=== PATIENT | female | born 1990 | race Caucasian/White ===

== ENCOUNTER 2017-07-11 09:07 | Outpatient (CLI) ==
[2017-07-11 09:39] LABS: BILIRUBIN,URINE Negative (NEGATIVE); KETONES,URINE Negative (NEGATIVE); LEUKOCYTE ESTERASE ,URINE 1+ (NEGATIVE); NITRITE,URINE Negative (NEGATIVE); PROTEIN,URINE Negative (NEGATIVE); URINE, BLOOD Trace-lysed (NEGATIVE)
[2017-07-11 09:52] LABS: BASOPHILS % (AUTO) 0.3 % (0.0-3.0); EOSINOPHILS # (AUTO) 0.1 K/ul (0.0-0.7); EOSINOPHILS % (AUTO) 0.9 % (0.0-7.0); HEMATOCRIT 40.8 % (37.0-47.0); HEMOGLOBIN 14.1 g/dl (12.0-16.0); IMMATURE GRANULOCYTE % (AUTO) 0.4 % (0.0-5.0); LYMPHOCYTES # (AUTO) 2.4 K/uL (0.60-3.4); LYMPHOCYTES % (AUTO) 23.8 (10.0-50.0); MEAN CORPUSCULAR HEMOGLOBIN 32.1 pg (27.0-31.0); MEAN CORPUSCULAR HGB CONC 34.6 (31.8-35.4); MEAN CORPUSCULAR VOLUME 92.9 fl (81.0-99.0); MONOCYTES # (AUTO) 0.6 K/uL (0.4-2.0); NEUTROPHILS # (AUTO) 6.9 K/ul (2.0-6.9); NEUTROPHILS % (AUTO) 68.6; PLATELET COUNT 214 10^3/uL (140-440); RED BLOOD COUNT 4.39 10^6/ul (4.20-5.40); WHITE BLOOD COUNT 10.06 K/ul (4.6-10.2)
[2017-07-11 09:58] LABS: COCAIN SCREEN,URINE NEGATIVE (NEGATIVE)
[2017-07-11 09:59] LABS: SERUM PREGNANCY INTERNAL QC INTERNAL QC VALID
[2017-07-11 10:02] LABS: ADD URINE MICROSCOPIC YES; BACTERIA,URINE 1+ (NOT PRESENT)
[2017-07-11 10:16] LABS: ALBUMIN 3.6 g/dL (3.4-5.0); ALBUMIN/GLOBULIN RATIO 1.09; ANION GAP 11.7; BILIRUBIN,TOTAL 0.67 mg/dL (0.00-1.20); BUN/CREATININE RATIO 15.71; CALCIUM 9.3 mg/dL (8.2-10.2); CHOL/HDL RATIO 3.4 (4.5-5.5); CREATININE 0.7 mg/dL (0.60-1.30); POTASSIUM 4.7 mmol/L (3.5-5.10); TOTAL PROTEIN 6.9 g/dL (6.4-8.2)
== END 2017-07-11 09:08 | disposition home or self-care (01) ==
LOC: LAB 09:07
PROVIDERS: ATTEND Family Medicine
DX: Z00.00 Encounter for general adult medical examination without abnormal findings (principal)
CPT/HCPCS: 36415; 80053; 80061; 80306; 81001; 84439; 84443; 84703; 85025

== ENCOUNTER 2017-12-11 13:00 | Outpatient (CLI) | END 2017-12-11 13:01 | disposition home or self-care (01) | LOC: LAB 13:00 | PROVIDERS: ATTEND Family Medicine | DX: R19.7 Diarrhea, unspecified (principal); R11.10 Vomiting, unspecified | CPT/HCPCS: 36415; 80053; 81001; 84439; 84443; 84703; 85025; 87086; 87502 ==

== ENCOUNTER 2019-01-06 20:15 | Emergency (ER) ==
[2019-01-06 20:23] VITALS: BP 112/76; TEMP 98.9; BMI 24.7
--- NOTE | 2019-01-06 22:28 | ED.PDOC ---
General ED Provider: Dr. LUIS LOPEZ Chief Complaint: Tooth Problem Stated Complaint: right upper incissirs decay and gum irritation,caries Time Seen by Physician: 20:35 Mode of Arrival: Walk-In Information Source: Patient Exam Limitations: No limitations Primary Care Provider: CALVIN KAUFMAN Nursing and Triage Documentation Reviewed and Agree: Yes Does patient meet sepsis criteria?: No System Inflammatory Response Syndrome: Not Applicable Sepsis Protocol: For patient's 13 years and over: Temp is 96.8 and below OR 101 and greater Pulse >90 BPM Resp >20/minute Acutely Altered Mental Status Are patient's symptoms suggestive of a new infection, such as: -Pneumonia -Skin, Soft Tissue -Endocarditis -UTI -Bone, Joint Infection -Implantable Device -Acute Abdominal Infection -Wound Infection -Meningitis -Blood Stream Catheter Infection -Unknown EENT Complaint Exam - Dental/Oral Complaint/Exam Onset/Duration: several days Symptoms Are: Still present Timing: Constant Current Severity: Moderate Character: Reports: Aching Aggravating: Reports: Heat, Cold, Chewing Alleviating: Reports: Topical meds Associated Signs and Symptoms: Reports: Swelling, Fever, Foul taste in mouth Related History: Reports: Similar episode, Previous tooth problem Cardiac Risk Factors: Reports: None Dental/Oral Surgical History: Reports: None Tooth Findings: Present: Gross decay Cervical Lymphadenopathy Present: No Facial Swelling Present: No Bleeding Present: No Septal Hematoma: No Foreign Body Present: No Dysphagia Present: No Drooling Present: No Asymmetrical Tonsillar Swelling Present: No Uvula Midline: No Heather-tonsillar Fluctuence: No Trismus Present: No Palatal Petechiae Present: No Scarlatinaform Rash Present: No Lesions: Present: Gums Differential Diagnoses: Gingivitis, Odontogenic Pain, Periodontic Disease, Stomatitis Review of Systems - Review Of Systems Constitutional: Reports: Fever, Other Eyes: Reports: No symptoms Ears, Nose, Mouth, Throat: Reports: No symptoms Cardiac: Reports: No symptoms GI: Reports: No symptoms : Reports: No symptoms Musculoskeletal: Reports: No symptoms Neurological: Reports: No symptoms Endocrine: Reports: No symptoms Hematologic/Lymphatic: Reports: No symptoms All Other Systems: Reviewed and Negative Past Medical History - Past Medical History Previously Healthy: Yes Endocrine: Reports: Unknown Cardiovascular: Reports: Unknown Respiratory: Reports: Unknown Hematological: Reports: Unknown Gastrointestinal: Reports: Unknown Genitourinary: Reports: Unknown Neuro/Psych: Reports: Unknown Musculoskeletal: Reports: Unknown Cancer: Reports: Unknown Last Menstrual Period: 12/23/2018 - Surgical History General Surgical History: Reports: Unknown - Family History Family History: Reports: Unknown - Social History Smoking Status: Current every day smoker, Light tobacco smoker Hx Substance Use: No Alcohol Screening: None - Immunizations Tetanus Shot up to Date: Yes Physical Exam - Physical Exam Appearance: Obese Ill-appearing: Mild Pain Distress: Moderate Eyes: ANN ENT: Ears normal Neck: Supple Respiratory: Airway patent GI/: Soft Musculoskeletal: Normal strength Skin: Warm Neurological: Sensation intact Psychiatric: Affect appropriate Critical Care Note - Critical Care Note Total Time (mins): 0 Course - Course Vital Signs: Temp Pulse Resp BP Pulse Ox 01/06/19 20:17 98.9 F 103 H 18 112/76 97 Departure - Departure Time of Disposition: 22:32 Disposition: HOME SELF-CARE Discharge Problem: Caries Instructions: Toothache (ED) Condition: Good Pt referred to PMD for follow-up: No IPMP verified?: No Allergies/Adverse Reactions: Allergies Penicillins Adverse Reaction (Verified 01/06/19 20:16) tramadol Adverse Reaction (Verified 01/06/19 20:16) Home Medications: Ambulatory Orders Escitalopram Oxalate [Lexapro] 10 mg PO DAILY 05/15/18 Risperidone [Risperdal] 0.5 mg PO BEDTIME 07/29/18 Disposition Discussed With: Patient
== END 2019-01-06 22:45 | disposition home or self-care (01) ==
LOC: ED 20:15
DX: K02.9 Dental caries, unspecified (principal); K08.89 Other specified disorders of teeth and supporting structures; R50.9 Fever, unspecified; R43.9 Unspecified disturbances of smell and taste; Z72.0 Tobacco use
CPT/HCPCS: 99282